=== PATIENT | female | born 1945 | race Caucasian/White ===

== ENCOUNTER 2016-06-01 16:28 | Inpatient (IN) ==
[2016-06-01] MEDS ORDERED: ASPIRIN PO ONE (17:20)
[2016-06-01 17:23] LABS: MANUAL DIFF NEEDED? NO
--- NOTE | 2016-06-01 17:26 | Diag Imaging Result Document ---
PROCEDURE NAME: CHEST-2 VIEWS - 06/01/2016 FRONTAL AND LATERAL CHEST, TWO VIEWS: FINDINGS: The lungs are well expanded. The heart is borderline mildly prominent. The vessels are not distended. No pneumonia. No free air beneath the diaphragm. IMPRESSION: Borderline mildly prominent heart, otherwise negative exam.
[2016-06-01 17:37] LABS: BASO% 0.2 % (0.0-0.8); EOS# 0.33 X1000 (0.0-0.7); EOS% 3.6 % (0.0-10.0); HEMATOCRIT 37.1 % (37.0-47.0); HEMOGLOBIN 12.8 g/dL (12.0-16.0); IMM GRAN# 0.02 X1000 (0.0-0.04); IMM GRAN% 0.2 % (0.0-0.5); LYMPH# 2.42 X1000 (1.2-3.4); LYMPH% 26.3 % (20.5-51.1); MCHC 34.5 g/dL (33-37); MCV 86.9 FL (81-99); MONO% 9.8 % (1.7-9.3); MPV 10.7 FL (7.4-10.4); NEUT% 59.9 % (42.2-75.2); PLT 198 X1000 (130-400); RBC 4.27 XMIL (4.2-5.4)
[2016-06-01 17:42] LABS: INR 1.06; PROTIME 11.2 Seconds (9.2-11.7); PTT 25.3 Seconds (22.0-36.0)
[2016-06-01 17:48] LABS: ALBUMIN 3.8 g/dL (3.5-5.0); CALCIUM 9.1 mg/dL (8.8-10.2); MAGNESIUM 1.9 mg/dL (1.5-2.7); POTASSIUM 3.5 mmol/L (3.5-5.1); TOTAL BILIRUBIN 0.34 mg/dL (0.20-1.00); TOTAL PROTEIN 6.8 g/dL (6.3-8.3)
--- NOTE | 2016-06-01 18:10 | PROVIDER DOCUMENTATION ---
HPI-Chest Pain - General Chief Complaint: Chest Pain Stated Complaint: CP Time Seen by Provider: 06/01/16 18:06 Source: patient Allergies/Adverse Reactions: Patient Allergies Allergy/AdvReac Type Severity Reaction Status Date / Time No Known Allergies Allergy Verified 06/01/16 17:08 Home Medications: Home Medication List Medication Instructions Recorded Confirmed Last Taken Type Alprazolam 1 mg PO DAILY 06/01/16 06/01/16 06/01/16 History Desvenlafaxine Succinate [Pristiq 100 mg PO DAILY 06/01/16 06/01/16 06/01/16 History ER] LISINOpril [Prinivil] 10 mg PO DAILY 06/01/16 06/01/16 06/01/16 History Pantoprazole Sodium 40 mg PO DAILY 06/01/16 06/01/16 06/01/16 History Trazodone [Desyrel] 100 mg PO QHS 06/01/16 06/01/16 05/31/16 History Ziprasidone HCl 80 mg PO DAILY 06/01/16 06/01/16 06/01/16 History - History of Present Illness-CP Nature of Presenting Problem: 70 yof with chest pain since this morning about 8am. Pain comes and goes. Pt describes pain a a sharp pain in left side of chest. Pt has some nausea with the pain and SOB. No other symptoms. Pt had a stress test on Friday and is supposed to follow up with circuit judge on Friday due to some blockage that was found. Location: reports: substernal Chest Pain Radiation: reports: arms Quality of Pain: reports: sharp Severity in ED: mild Onset/Duration: 4-6 hours ago Timing: still present, intermittent Context/Activities at Onset: reports: light activity Modifying Factors: improves with: rest Associated Symptoms: reports: nausea, shortness of breath Nitro Today/Relief: no nitro taken today Prior Chest Pain/Cardiac Workup: reports: stress test Similar Symptoms Previously?: Yes Recently Seen Here or By Another Healthcare Provider: Yes (Had stress test on Friday.) Review of Systems - Adult - REVIEW OF SYSTEMS - ADULT Constitutional: reports: see HPI Eyes: reports: no symptoms reported Ears, Nose, Mouth & Throat: reports: no symptoms reported Cardiovascular: reports: see HPI, chest pain Respiratory: reports: see HPI, shortness of breath Gastrointestinal: reports: see HPI, nausea Genitourinary: reports: no symptoms reported Musculoskeletal: reports: no symptoms reported Integumentary: reports: no symptoms reported Neurological: reports: no symptoms reported All Other Systems: Reviewed and Negative Past History - Adult - PAST MEDICAL HISTORY-ADULT Review of Records: reports: Old Records Reviewed, Nursing Assessment Review, Medications Reviewed, Social history reviewed & non-contributory. Physical Exam-General - PHYSICAL EXAM-ADULT Initial Vital Signs Reviewed: Yes - CONSTITUTIONAL General Appearance: appears well, alert, no apparent distress - EYES Eyes: PERRL/EOMI, pink conjunctivae - HEAD, EARS, NOSE, MOUTH & THROAT HENMT: normocephalic/atraumatic, moist mucous membranes, normal ENT inspection, TMs normal, pharynx normal - NECK Neck: non-tender, full range of motion, supple, normal inspection - RESPIRATORY Respiratory: lungs clear, normal breath sounds, no pleuratic chest pain, no respiratory distress, no accessory muscle use - CARDIOVASCULAR Cardiovascular: normal peripheral pulses, no edema, no gallop, no JVD, no murmur , irregularly irregular - GASTROINTESTINAL (ABDOMEN) Abdominal Exam: normal bowel sounds, non tender, soft, no organomegaly, no pulsatile mass - LYMPHATIC Lymphatic: no adenopathy - MUSCULOSKELETAL Back Exam: normal inspection, no CVA tenderness, no vertebral tenderness Extremity: normal range of motion, non-tender, normal gait, normal inspection, no pedal edema, no calf tenderness, normal capillary refill, pelvis stable - SKIN Integumentary: normal color, normal turgor, warm/dry - NEUROLOGIC Neurologic: grossly normal - PSYCHIATRIC Psych/Mental Status: oriented x 3 Progress - PLAN OF CARE/RESULTS Progress/Plan/Lab Results: Vital Signs - 8 hr 06/01/16 16:40 06/01/16 17:25 06/01/16 19:24 Temperature 98.1 F Pulse Rate 72 69 67 Respiratory Rate 20 15 18 Blood Pressure 152/90 186/84 167/98 O2 Sat by Pulse Oximetry 96 95 96 Laboratory Results - last 24 hr 06/01/16 06/01/16 06/01/16 17:18 17:18 17:18 WBC 9.21 RBC 4.27 Hgb 12.8 Hct 37.1 MCV 86.9 MCH 30.0 MCHC 34.5 RDW Std Deviation 13.8 Plt Count 198 MPV 10.7 H Immature Gran % (Auto) 0.2 Neut % (Auto) 59.9 Lymph % (Auto) 26.3 [place] % (Auto) 9.8 H Eos % (Auto) 3.6 Baso % (Auto) 0.2 Immature Gran # (Auto) 0.02 Neut # (Auto) 5.52 Lymph # (Auto) 2.42 [place] # (Auto) 0.90 H Eos # (Auto) 0.33 Baso # (Auto) 0.02 PT INR PTT (Actin FS) D-Dimer 0.40 Sodium 138 Potassium 3.5 Chloride 97 L Carbon Dioxide 27 Anion Gap 14 BUN 10 Creatinine 1.0 H Estimated GFR/1.73 m2 55 BUN/Creatinine Ratio 10 Glucose 117 H Calculated Osmolality 276 Calcium 9.1 Magnesium 1.9 Total Bilirubin 0.34 AST 21 ALT 15 Alkaline Phosphatase 76 Creatine Kinase 128 Troponin T Fbi-X-Daxzotzadjy Pept Total Protein 6.8 Albumin 3.8 Globulin 3.0 Albumin/Globulin Ratio 1.3 06/01/16 06/01/16 06/01/16 17:18 17:18 17:18 WBC RBC Hgb Hct MCV MCH MCHC RDW Std Deviation Plt Count MPV Immature Gran % (Auto) Neut % (Auto) Lymph % (Auto) [place] % (Auto) Eos % (Auto) Baso % (Auto) Immature Gran # (Auto) Neut # (Auto) Lymph # (Auto) [place] # (Auto) Eos # (Auto) Baso # (Auto) PT 11.2 INR 1.06 PTT (Actin FS) 25.3 D-Dimer Sodium Potassium Chloride Carbon Dioxide Anion Gap BUN Creatinine Estimated GFR/1.73 m2 BUN/Creatinine Ratio Glucose Calculated Osmolality Calcium Magnesium Total Bilirubin AST ALT Alkaline Phosphatase Creatine Kinase Troponin T < 0.010 Fps-K-Tomxggzmorc Pept 316 Total Protein Albumin Globulin Albumin/Globulin Ratio Orders Category Date Time Status Saline Loc NOW Care 06/01/16 16:32 Active CHEST-2 VIEWS [RAD] Stat Exams 06/01/16 16:32 Draft CBC WITH ELECTRONIC DIFF [HEME] Stat Lab 06/01/16 17:18 Completed CK PROFILE [SP CHEM] Stat Lab 06/01/16 17:18 Completed COMPREHENSIVE METABOLIC PANEL [CHEM] Stat Lab 06/01/16 17:18 Completed D-DIMER [CHEM] Stat Lab 06/01/16 17:18 Completed MAGNESIUM [CHEM] Stat Lab 06/01/16 17:18 Completed PRO B-NATRIURETIC PEPTIDE Stat Lab 06/01/16 17:18 Completed PROTIME WITH INR [COAG] Stat Lab 06/01/16 17:18 Completed PTT [COAG] Stat Lab 06/01/16 17:18 Completed TROPONIN T Stat Lab 06/01/16 17:18 Completed Aspirin Med 06/01/16 17:20 Discontinued 325 mg PO NOW ONE EKG [EKG] Stat Ther 06/01/16 16:32 Ordered Result Diagrams: 06/01/16 17:18 06/01/16 17:18 - XRAY 1 XRAY Study: Chest Impression: Normal (Borderline cardiomegaly. Otherwise normal per radiologists.) - CONSULTS/PCP/HOSPITALIST Notification #1 *Consult/PCP/Hospitalist*: Fito Time Discussed: 18:41 Consult Disposition: Will see in ED, Admit #2 Consult: Marco Time Discussed: 19:44 (will be happy to be consulted on patient and give recommendations once he sees her in hospital.) Consult Disposition: other Departure - Departure Time of Disposition Decision: 18:41 DIAGNOSIS: Chest pain Qualifiers: Chest pain type: unspecified Qualified Code(s): R07.9 - Chest pain, unspecified Disposition: ADMITTED INPATIENT 09 Certified Medical Emergency: Emergent Condition: Stable Referrals and Follow-Ups: Jerome Daily MD [Primary Care Provider] - Attestation - Physician/ VENKATESH Attestation Patient care was provided by Advanced Practice Provider:: Yes Advanced Practice Provider:: Toño Reyna Advanced Practice Provider documentation review:: The Mid-level provider documentation, treatment plan and medical decision making was reviewed by the physician who agrees with all treatment and medical decision making by the MLP.
--- NOTE | 2016-06-01 21:06 | HISTORY AND PHYSICAL ---
REASON FOR ADMISSION: Chest pain today. PRIMARY CARE PHYSICIAN: Dr. Jerome Daily. Ms. Stone is a 70-year-old lady with past medical history of seasonal allergic rhinitis, reflux disease, hypertension, anxiety and depression who underwent a Lexiscan stress test 4 days ago and her test was found to be negative. This test was read by Dr. Morales but he did however recommend a CT scan of the chest for coronary calcium scoring. The patient reports that she while at rest today 8 hours ago she felt some sharp pressure-like chest pain in the precordial area which was nonradiating. The pain was intermittent and has lasted 5 hours but spontaneously resolved without any recurrence. During this spell she denied any dizziness, palpitations or shortness of breath with it. She did complain of nausea but at the same time she developed some nonbloody diarrhea about that time. No vomiting. Her diarrhea is non-mucoid and she has had 3 episodes altogether. She initially had some vague diffuse abdominal pain but this has since resolved. Her chest pain has no specific aggravating or relieving factors. She denies any new onset leg swelling but she also denies any PND, orthopnea with this. No extremity redness or pain. REVIEW OF SYSTEMS: Patient says he has had a chronic cough for several months nonproductive without any fever or chills. She has a history of ocular nasal pruritus which gets worse during the spring season when there is lot of pollen. Heartburn has not worsened however. Twelve system review is negative. Additional review of systems 12 systems reviewed. Positive findings noted in HPI and as per above. Patient says for the last 6 months she has been having increasing dyspnea on exertion. ALLERGIES: No known allergies. MEDICATIONS: Xanax 1 mg daily, Pristiq 100 mg daily, lisinopril 10 mg daily, Protonix 40 mg daily, trazodone 100 mg at bedtime, Geodon 80 mg daily. SURGICAL HISTORY: Had shoulder and back surgery. FAMILY HISTORY: Notable for asthma, heart disease and type 2 diabetes in first-degree relatives. SOCIAL HISTORY: Does not smoke, drink, or use illicit drugs, lives alone. LAB WORK: Is notable for the following findings. White count 9000, hemoglobin and hematocrit 12 and 37, platelets 198,000. Potassium 3.5, glucose 117, troponin is negative. CK 128, D-dimer negative, PT, PTT normal. Chest x-ray shows borderline cardiomegaly with no other acute findings. EKG not available for review and nurse is still working for the EKG at this time and not been able to find it so will probably need to repeat another 1. EXAMINATION: Vital Signs: Blood pressure 167/90, heart rate 67, respirations 18, temperature 98.1, 96 on room air. General: Pleasant elderly woman who is not in acute distress, she is A, O x3, normal mood and affect. HEENT: Head is normocephalic, atraumatic. RODRIGUE, EOMI. Sclerae anicteric and not pale. ENT and oropharynx exam is grossly normal. No cyanosis noted. Neck: Short and thick. No JVD or carotid bruit. No thyromegaly. Chest: Decreased entry in the bases. Expiratory wheezes in the bases more on the right compared to left. No crepitations. Cardiac System: First, second heart sounds heard. No gallops, murmurs, rubs. Rhythm is regular. Abdomen: Protuberant, soft, no focal areas of tenderness, slightly hyperactive bowels noted. Rectal: Deferred. Extremities: Trace to 1+ pitting edema both lower extremities. Pulses distally intact in all extremities with good volume and all symmetrical. The patient has hyperpigmented changes on both shins suggestive of chronic venous insufficiency. No clubbing, cyanosis noted. Neuro: No focal deficits. Skin: Grossly normal other than noted above. Muscular exam: Grossly normal. ASSESSMENT: 1. Chest pain syndrome probable somewhat atypical for ischemia. 2. Acute diarrhea probably viral illness. 3. Hypertension. 4. Hypokalemia. 5. Reflux disease. 6. Very probable asthma. 7. Allergic rhinitis. 8. Anxiety and depression. PLAN: 1. At this time will cautiously hydrate patient to make up for her fluid losses per rectum. Start patient on breathing treatments see how she does. If she improves I may suggest a short course of prednisone. Start on Flonase and Zyrtec for allergic rhinitis. 2. Serial cardiac enzymes will be done. Dr. Sanchez the utilization review coordinator was consulted and he said he would need to see the patient before he can make a firm decision how to proceed. Lipid panel has been ordered, aspirin will be continued, p.r.n. sublingual nitroglycerin if needed. 3. Regarding her diarrhea stool cultures C. difficile has been sent off. The patient denies any recent use of antibiotics. If patient has a fever or abdominal pain recurs I recommended CT scan in light of the fact the patient has a history of diverticulosis. cc: Eladio Harmon MD
[2016-06-01] MEDS: DUONEB (A & A) INH SCH (21:13)
[2016-06-01] MEDS ORDERED: NITROGLYCERIN SL PRN (21:29)
[2016-06-01] MEDS ORDERED: ZOFRAN IV PRN (21:29)
[2016-06-01] MEDS ORDERED: POTASSIUM CHLORIDE 10 MEQ in NS 1,000 ML IV ONE (21:29)
[2016-06-01] MEDS ORDERED: TYLENOL PO PRN (21:29)
[2016-06-01] MEDS: FLONASE NAS SCH (22:09)
[2016-06-01] MEDS: ZYRTEC PO SCH (22:09)
[2016-06-01] MEDS: DESYREL PO SCH (22:09)
[2016-06-01] MEDS: LOVENOX SUBQ SCH (22:09)
[2016-06-01] MEDS: GEODON PO SCH (23:02)
[2016-06-02] MEDS: DUONEB (A & A) INH SCH ×3 (02:55→18:29)
[2016-06-02] MEDS: PRILOSEC PO SCH ×2 (05:56→06:19)
[2016-06-02] MEDS: PRINIVIL PO SCH (08:30)
[2016-06-02] MEDS: ZYRTEC PO SCH (08:31)
[2016-06-02] MEDS: PRISTIQ ER PO SCH (08:31)
[2016-06-02] MEDS: XANAX PO SCH (08:31)
[2016-06-02] MEDS: ASPIRIN PO SCH (08:31)
[2016-06-02] MEDS ORDERED: PROTONIX PO SCH (09:00)
[2016-06-02] MEDS ORDERED: GEODON PO SCH (09:00)
[2016-06-02] MEDS ORDERED: DUONEB (A & A) INH PRN (13:36)
[2016-06-02] MEDS ORDERED: SOLU-MEDROL IV SCH (14:00)
--- NOTE | 2016-06-02 15:02 | PROGRESS NOTE ---
DATE: 06/02/2016 SUBJECTIVE: The patient is feeling well. Still has intermittent chest pain which she has had for the past month. It is worse with breathing. OBJECTIVE: Vital signs: Blood pressure 165/66, pulse of 84, respirations 20, temperature 98.2 degrees, saturation of 97% on room air. General appearance: Well-developed, well-nourished white female in no acute distress. HEENT: Anicteric. Clear conjunctivae. Neck: Supple. No JVD. No bruits. Cardiovascular: S1, S2. Normal rate and rhythm. No murmurs, rubs, or gallops. Pulmonary: Clear to auscultation bilaterally. GI: Soft, nontender, nondistended. Normoactive bowel sounds. Musculoskeletal: No clubbing, cyanosis, or edema. LABORATORY: Troponin 3 sets were negative. Total cholesterol is 158, LDL 100, and HDL 42. Her chest x-ray just borderline mildly prominent heart. ASSESSMENT AND PLAN: 1. This is a 70-year-old white female admitted to the hospital for intermittent chest pain with negative troponins but she continued to have pain. Cardiology is seeing her. Discussed with Dr. Lara this morning. Because of the fact that she is female, obese, and has chest pain, it is warranted for us to do further workup. Will send the patient for a nuclear medicine stress test tomorrow. 2. Hypertension. We will resume her lisinopril. 3. Anxiety disorder. Continue Xanax. 4. Depression. Continue Pristiq. 5. Insomnia. Continue Desyrel and Zyprexa.
--- NOTE | 2016-06-02 21:48 | CONSULTATION ---
DATE OF CONSULTATION: 06/02/2016 IMPRESSION: 1. Atypical chest pain. 2. Recent exercise treadmill study reported to be nonischemic. Transient paroxysmal atrial fibrillation reported in recovery. 3. Hypertension. 4. Peptic ulcer disease. RECOMMENDATIONS: 1. Stress myocardial imaging. 2. Echocardiography. HISTORY: This 70-year-old white female with past history of hypertension and obesity was admitted for further evaluate of chest pain. She describes episodic discomfort in the anterior and left precordium which is characterized as a sharp piercing discomfort which is fleeting but recurs frequently over 15 minutes or so at a time. She has been having such discomfort off and on for about 6 months. Discomfort is not pleuritic although she does state the discomfort seems to be aggravated by movement of the torso. She underwent exercise treadmill study earlier in the week which was felt to be nonischemic with respect to ST-segment changes. However patient reportedly developed a paroxysm of atrial fibrillation during recovery which resolved. The patient had further chest discomfort prompting her to come into the emergency room for evaluation after which she was admitted. PAST MEDICAL HISTORY: 1. Hypertension. 2. Obesity. 3. Peptic ulcer disease. PAST SURGICAL HISTORY: Includes unspecified back surgery and removal of spur from right shoulder. ALLERGIES: She has no known drug allergies. MEDICATIONS: Prior to admission as listed. SOCIAL HISTORY: She does not smoke or use alcohol. FAMILY HISTORY: Negative for premature coronary disease. She does have a family history of coronary disease in the 7th decade and beyond. REVIEW OF SYSTEMS: Pulmonary: Negative. Gastrointestinal: Negative. Constitutional: Negative. Remainder of review of systems negative with 14 total systems reviewed. PHYSICAL EXAMINATION: General: This is a obese older white female, in no distress. Vital Signs: As recorded are stable. HEENT: Extraocular movements intact. Mucous membranes are moist. Neck: Supple without JV distention. There are no carotid bruits. Chest: Clear to auscultation. Cardiac Exam: A regular rate and rhythm without appreciable murmur or gallop. Abdomen: Soft, nontender. Bowel sounds are normal. Extremities: Without edema. Neurologic Exam: Reveals her to be alert, fully oriented. Speech is fluent. She moves all 4 extremities equally well. Skin: Warm and dry. Psychiatric: Reveals mood to be appropriate. DIAGNOSTIC DATA: ECG demonstrates sinus rhythm with occasional premature atrial complex and left ventricular hypertrophy with repolarization abnormality. cc: Hugo Lara MD
[2016-06-03] MEDS: DESYREL PO SCH ×2 (00:53→20:43)
[2016-06-03] MEDS: GEODON PO SCH ×2 (00:54→20:43)
[2016-06-03] MEDS: FLONASE NAS SCH ×2 (00:54→20:44)
--- NOTE | 2016-06-03 05:25 | EKG Report ---
Test Performed on : 06/03/2016 03:23:30 AM Test Reason : chest pain Blood Pressure : / mmHG Vent. Rate : 078 BPM Atrial Rate : 078 BPM P-R Int : 176 ms QRS Dur : 084 ms QT Int : 418 ms P-R-T Axes : 086 -20 092 degrees QTc Int : 476 ms Normal sinus rhythm. Left ventricular hypertrophy with repolarization abnormality Abnormal ECG When compared with ECG of 01-JUN-2016 20:25, (Unconfirmed) premature atrial complexes. are no longer present Confirmed by Darin OROZCO, Raymond Carpenter ([id number]) on 06/03/2016 6:49:39 PM
--- NOTE | 2016-06-03 05:59 | EKG Report ---
Test Performed on : 06/01/2016 8:25:25 PM Test Reason : CP Blood Pressure : / mmHG Vent. Rate : 066 BPM Atrial Rate : 066 BPM P-R Int : 192 ms QRS Dur : 088 ms QT Int : 466 ms P-R-T Axes : 065 -11 118 degrees QTc Int : 488 ms Sinus rhythm. with premature atrial complexes. Left ventricular hypertrophy with repolarization abnormality Abnormal ECG When compared with ECG of 01-JUN-2016 16:32, (Unconfirmed) No significant change was found Confirmed by Darin OROZCO, Raymond Carpenter ([id number]) on 06/03/2016 6:39:51 PM
--- NOTE | 2016-06-03 06:23 | EKG Report ---
Test Performed on : 06/01/2016 4:32:29 PM Test Reason : Chest Pain Blood Pressure : / mmHG Vent. Rate : 076 BPM Atrial Rate : 076 BPM P-R Int : 176 ms QRS Dur : 086 ms QT Int : 418 ms P-R-T Axes : 080 -10 110 degrees QTc Int : 470 ms Sinus rhythm. with premature atrial complexes. Left ventricular hypertrophy with repolarization abnormality Abnormal ECG No previous ECGs available Unconfirmed Result
[2016-06-03 08:29] LABS: CALCIUM 8.8 mg/dL (8.8-10.2); POTASSIUM 4.1 mmol/L (3.5-5.1)
[2016-06-03] MEDS ORDERED: LEXISCAN ONE (09:00)
[2016-06-03] MEDS: PRILOSEC PO SCH (09:04)
[2016-06-03] MEDS: XANAX PO SCH (11:01)
[2016-06-03] MEDS: ASPIRIN PO SCH (11:01)
[2016-06-03] MEDS: PRINIVIL PO SCH (11:02)
[2016-06-03] MEDS: PRISTIQ ER PO SCH (11:02)
[2016-06-03] MEDS: ZYRTEC PO SCH (11:02)
[2016-06-03] MEDS: APRESOLINE PO SCH ×4 (11:37→20:43)
[2016-06-03] MEDS: LOVENOX SUBQ SCH (11:37)
--- NOTE | 2016-06-03 13:17 | PROGRESS NOTE ---
DATE: 06/03/2016 SUBJECTIVE: This patient states that she is feeling better, her blood pressure has been high, around 200. She is just on lisinopril. I will add hydralazine 10 IV q.4 hours p.r.n. and also I will add hydralazine 25 mg p.o. t.i.d. We will continue to monitor. Cardiology department is on board. She just came back from a stress test. OBJECTIVE: Vital Signs: Temperature 99.2, pulse 99, respiratory rate 20, blood pressure 219/77, oxygen saturation 100% on room air. HEENT: Head normocephalic. No trauma. PERRLA. Neck: Supple. No JVD. No masses. Central trachea. Cardiovascular: RRR. No murmurs. Abdomen: Soft, nontender, nondistended. No hepatosplenomegaly. Extremities: No edema. No clubbing. No cyanosis. Neurological: The patient is alert and oriented x3. No focal deficits. LABORATORY: Sodium 141, potassium 4.1, chloride 101, bicarbonate 27, BUN 10, creatinine 1, glucose 128, calcium 8.8. ASSESSMENT AND PLAN: 1. Chest pain. Cardiology department has evaluated this patient. This patient just came back from a stress test and probably echocardiogram as well. We will continue monitoring this patient on the medical floor, we will wait for the stress test results. 2. Hypertension. This patient is on lisinopril, but I will add hydralazine IV q.4 hours p.r.n. and hydralazine 25 mg p.o. t.i.d. scheduled. I will monitor the blood pressure. 3. Anxiety disorder. Continue with Xanax. 4. Depression. Continue with Pristiq. 5. Insomnia. Continue with Desyrel and Zyprexa. cc: Antony Sauceda MD
--- NOTE | 2016-06-03 16:33 | ECHO REPORT ---
ORDER DATE: 06/03/2016 ECHOCARDIOGRAPHIC MEASUREMENTS: 1. Interventricular septum 1.2, left ventricular posterior wall 1.2, diastolic diameter 4.4, left atrium 3.6, aorta 2.8. Normal left ventricular cavity size. Borderline left ventricular hypertrophy. Estimated ejection fraction of 60-65%. 2. Aortic valve leaflets are trileaflet, mildly sclerosed, opening normally. Pulmonic valve was normal. Tricuspid valve was normal. Mitral valve was brit. 3. There is mild to moderate mitral regurgitation, mild tricuspid regurgitation. Peak velocity across the tricuspid valve was 3 m/sec. Pulmonary artery systolic pressure 46 mmHg. 4. There is trace pulmonary regurgitation. 5. There is no pericardial effusion or obvious intracardiac mass or thrombus. cc: MD Hugo Kwong MD
[2016-06-04 06:36] LABS: MANUAL DIFF NEEDED? NO
[2016-06-04 06:45] LABS: BASO% 0.4 % (0.0-0.8); EOS# 0.27 X1000 (0.0-0.7); EOS% 5.3 % (0.0-10.0); HEMATOCRIT 38.4 % (37.0-47.0); HEMOGLOBIN 13.1 g/dL (12.0-16.0); IMM GRAN# 0.02 X1000 (0.0-0.04); IMM GRAN% 0.4 % (0.0-0.5); LYMPH# 1.68 X1000 (1.2-3.4); MCHC 34.1 g/dL (33-37); MCV 87.9 FL (81-99); MONO% 7.9 % (1.7-9.3); MPV 10.6 FL (7.4-10.4); PLT 193 X1000 (130-400); RBC 4.37 XMIL (4.2-5.4)
[2016-06-04 06:59] LABS: CALCIUM 8.9 mg/dL (8.8-10.2); POTASSIUM 3.6 mmol/L (3.5-5.1)
[2016-06-04] MEDS: PRILOSEC PO SCH (06:59)
[2016-06-04 07:37] VITALS: BP 147/66
[2016-06-04] MEDS: PRINIVIL PO SCH (09:13)
[2016-06-04] MEDS: ZYRTEC PO SCH (09:13)
[2016-06-04] MEDS: XANAX PO SCH (09:13)
[2016-06-04] MEDS: PRISTIQ ER PO SCH (09:13)
[2016-06-04] MEDS: ASPIRIN PO SCH (09:13)
[2016-06-04] MEDS: APRESOLINE PO SCH (09:13)
[2016-06-04] MEDS ORDERED: LOVENOX SUBQ SCH (11:40)
--- NOTE | 2016-06-05 05:33 | DISCHARGE SUMMARY ---
ADMISSION DATE: 06/01/2016 DISCHARGE DATE: 06/04/2016 CONSULTATIONS: Dr. Hugo Lara with cardiology. PERTINENT PROCEDURES: 1. Echocardiogram. Echocardiogram showed an EF of 60% to 65%. 2. A Lexiscan that was negative. DISCHARGE DIAGNOSES: 1. Chest pain. Patient was ruled out with serial cardiac enzymes, negative Lexiscan stress test. Followed by cardiology. 2. Hypertension. Continue on home medications. 3. Anxiety disorder. Continue Xanax. 4. Depression. Continue with Pristiq. 5. Insomnia. Continue with Zestril and Zyprexa. HOSPITAL COURSE: Ms. Stone is a 70-year-old female. Has a past medical history of seasonal allergic rhinitis, reflux disease, hypertension, anxiety, depression. Underwent a Lexiscan stress test 4 days ago. Was found to be negative. The test was read by Dr. Morales, but he did however recommend a CT scan of the chest for coronary calcium scoring. The patient reports that while at rest, 8 hours prior to admission, she felt a sharp pressure-like chest pain in the precordial area that was nonradiating. The pain was intermittent and lasted about 5 hours, but spontaneously resolved without reoccurrence. She denied any dizziness, palpitations, shortness of breath, but did complain of nausea. But at the same time, she developed some nonbloody diarrhea. No vomiting. Her diarrhea was non-mucoid, and she has had 3 episodes altogether. Some vague diffuse abdominal pain, that has since resolved. The patient was admitted with a cardiology consult. She was ruled out with cardiac enzymes, unremarkable echocardiogram, as well as a negative stress test. She is being discharged back home today. DISCHARGE DIET: Healthy heart. DISCHARGE MEDICATIONS: 1. Xanax 1 mg p.o. daily. 2. Aspirin 325 mg p.o. daily. 3. Pristiq 100 mg p.o. daily. 4. Flonase 2 sprays nasally at bedtime. 5. Apresoline 25 mg p.o. t.i.d. 6. Prinivil 10 mg p.o. daily. 7. Protonix 40 mg p.o. daily. 8. Zestril 100 mg p.o. at bedtime. 9. Ziprasidone 80 mg p.o. at bedtime. FOLLOWUP: Patient is being discharged home. She will follow up with her primary care physician, Dr. Jerome Daily, as well as her primary valve mechanic. The patient can return to the ED for any worsening of symptoms. The patient adamantly refused home health and physical therapy. DISCHARGE TIME: 30 minutes. Dictated by SUKHI Mesa for Antony Sauceda MD cc: Antony Sauceda MD
--- NOTE | 2016-06-27 14:16 | Diag Imaging Result Document ---
PROCEDURE NAME: MYOCARDIAL PERF SCAN, STR/REST - 06/03/2016 LEXISCAN CARDIOLITE STRESS TEST: Lexiscan was infused per standard protocol. There was no chest pain. Stress electrocardiogram was negative for ischemia. 12.7 mCi of Cardiolite was injected for the rest phase. 35.3 mCi of Cardiolite was injected for the stress phase. Gated SPECT images were obtained in standard views. Images revealed chest wall attenuation. There is normal myocardial perfusion. Left ventricular ejection fraction 67%. Wall motion was normal. Left ventricular volume was normal. CONCLUSIONS: 1. No chest pain. 2. Negative Lexiscan stress electrocardiogram. 3. Normal myocardial perfusion. 4. Left ventricular ejection fraction 67%. cc: MD Hugo Kwong MD
== END 2016-06-04 12:26 | disposition home or self-care (01) ==
LOC: ED 16:28 → SUATTDRO 20:28 → 3S 20:28 → 4N 06-02 18:36
PROVIDERS: ATTEND Internal Medicine

== ENCOUNTER 2018-04-01 18:26 | Observation (INO) ==
[2018-04-01 18:50] LABS: BE 4.8 mmoll (-3.0-3.0); BLOOD TYPE ARTERIAL; HCO3-(ACT) 28.6 mmoll (20.0-26.0); METHB 1.3 % (0.0-1.5); O2(CT) 18.2 mL/dL (15.0-23.0); O2HB 94.1 % (95.0-99.0); PCO2(98.6) 45 mmHg (35-45); PO2(98.6) 78 mmHg (60-100); SAMPLE BLOOD; SAO2 97.6 % (95.0-100.0); THB 13.7 g/dL (11.5-17.4); pH(98.6) 7.43 (7.35-7.45)
[2018-04-01 18:52] LABS: ALLEN TEST YES; MODALITY ROOM AIR
[2018-04-01 19:29] LABS: BILIRUBIN URINE NEGATIVE (NEGATIVE); BLOOD URINE 1+ (NEGATIVE); CLARITY CLEAR (CLEAR); COLOR YELLOW; GLUCOSE URINE NEGATIVE (NEGATIVE); KETONE URINE NEGATIVE (NEGATIVE); LEUKOCYTES URINE 1+ (NEGATIVE); NITRITE URINE NEGATIVE (NEGATIVE); PROTEIN URINE NEGATIVE (NEGATIVE); UROBILINOGEN URINE NORMAL
[2018-04-01 19:43] LABS: URINE SOURCE CATH
[2018-04-01 19:45] LABS: URINE BACTERIA 2+ /HFP; URINE CAST NONE SEEN /LPF; URINE CRYSTAL NONE SEEN /HPF; URINE EPITHELIAL CELLS <10 /HPF (<10); URINE RBC <10 /HPF (<10); URINE SMALL ROUND CELLS RENAL PRESENT; URINE WBC <10 /HPF (<10); URINE YEAST NONE SEEN /HPF
[2018-04-01 19:58] LABS: BASO# 0.02 X1000 (0.0-0.2); BASO% 0.2 % (0.0-0.8); EOS# 0.18 X1000 (0.0-0.7); EOS% 2.2 % (0.0-10.0); HEMATOCRIT 37.2 % (37.0-47.0); HEMOGLOBIN 12.9 g/dL (12.0-16.0); IMM GRAN# 0.02 X1000 (0.0-0.04); IMM GRAN% 0.2 % (0.0-0.5); LYMPH# 2.42 X1000 (1.2-3.4); LYMPH% 29.8 % (20.5-51.1); MCH 28.9 PG (27-31); MCHC 34.7 g/dL (33-37); MCV 83.4 FL (81-99); MONO# 0.56 X1000 (0.11-0.59); MONO% 6.9 % (1.7-9.3); MPV 10.9 FL (7.4-10.4); NEUT# 4.91 X1000 (1.4-6.5); NEUT% 60.7 % (42.2-75.2); PLT 153 X1000 (130-400); RBC 4.46 XMIL (4.2-5.4); RDW 13.4 % (11.5-14.5); WBC 8.11 X1000 (4.8-10.8)
[2018-04-01 20:03] LABS: INR 1.03; PTT 30.6 Seconds (22.3-41.8)
--- NOTE | 2018-04-01 20:03 | Diag Imaging Result Doc PS360 ---
EXAM: CT HEAD W/O CONTRAST - 04/01/2018 HISTORY: AMS TECHNIQUE: CT head without contrast COMPARISON: None. FINDINGS: There are mild atrophic changes. There are mild chronic appearing microvascular ischemic changes. There is no indication of recent infarct, although acute infarcts may not be immediately visible. There is no evidence of intracranial hemorrhage, mass effect, or midline shift. There is no evidence of skull fracture. There are possible small bilateral mastoid effusions noted. IMPRESSION: No visible acute intracranial abnormality. No hemorrhage or mass effect. There are possible small mastoid effusions noted. This exam was performed using automated exposure control, adjustment of mA or kV according to patient size, and/or use of iterative reconstruction technique. Electronically signed by Emmett Guajardo 04/01/2018 8:00 PM
[2018-04-01 20:10] LABS: ALBUMIN 4.2 g/dL (3.5-5.0); CALCIUM 9.1 mg/dL (8.8-10.2); POTASSIUM 2.8 mmol/L (3.5-5.1); TOTAL BILIRUBIN 0.6 mg/dL (0.20-1.00); TOTAL PROTEIN 6.8 g/dL (6.3-8.3)
--- NOTE | 2018-04-01 20:27 | Diag Imaging Result Doc PS360 ---
EXAM: CHEST-1 VIEW - 04/01/2018 HISTORY: AMS TECHNIQUE: One view chest COMPARISON: 04/30/2017 FINDINGS: Heart size appears borderline enlarged. Lungs appear essentially clear. There are possible tiny bilateral pleural effusions. There is no pneumothorax identified. IMPRESSION: Borderline cardiomegaly. Possible tiny bilateral pleural effusions. No other acute changes. Electronically signed by Emmett Guajardo 04/01/2018 8:25 PM
[2018-04-01] MEDS ORDERED: KLOR-CON PO ONE (20:33)
[2018-04-01] MEDS ORDERED: APRESOLINE IV ONE ×2 (20:50→21:40)
[2018-04-01] MEDS ORDERED: LABETALOL IV ONE (22:37)
--- NOTE | 2018-04-01 22:40 | PROVIDER DOCUMENTATION ---
This chart was entered by Ping Joseph Scribe, acting as scribe for James Hinton CRNP. HPI-Neurological Disorder - General Chief Complaint: Altered Mental Status Stated Complaint: AMS Time Seen by Provider: 04/01/18 18:48 Source: patient Allergies/Adverse Reactions: Patient Allergies Allergy/AdvReac Type Severity Reaction Status Date / Time No Known Allergies Allergy Verified 04/01/18 18:40 Home Medications: Home Medication List Medication Instructions Recorded Confirmed Last Taken Type LISINOpril [Prinivil] 10 mg PO DAILY 06/01/16 04/01/18 04/01/18 History Trazodone [Desyrel] 100 mg PO QHS #30 tablet 06/04/16 04/01/18 03/31/18 Rx Alprazolam 1 mg PO TID 01/16/17 04/01/18 01/21/17 08:00 History Hydralazine [Apresoline] 50 mg PO TID 01/16/17 04/01/18 04/01/18 History Ziprasidone [Geodon] 40 mg PO QHS 01/16/17 04/01/18 01/21/17 08:00 History Meloxicam 15 mg PO DAILY 04/20/17 04/01/18 04/01/18 History Tolterodine Tartrate [Tolterodine 4 mg PO QHS 04/20/17 04/01/18 03/31/18 History Tartrate ER] Donepezil HCl 5 mg PO HS 04/01/18 04/01/18 03/31/18 History Escitalopram [Lexapro] 5 mg PO DAILY 04/01/18 04/01/18 04/01/18 History Losartan Potassium 25 mg PO DAILY 04/01/18 04/01/18 04/01/18 History Sucralfate 1 gm ORDERED 04/01/18 04/01/18 History - History of Present Illness-Neuro Nature of Presenting Problem: pt is a 72 yr old female presenting with daughter, daughter reports when she arrived at 1615 today mother was confused, could not tell her where she was, did not know her, did not know her own name. last seen at her normal yesterday. pt does admit headache today, unsure when it began, and feeling confused this morning. on exam pt alert to person and place with slow responses. Onset/Duration: reports: unsure Timing: reports: still present Context: reports: impaired speech, facial droop, other (confusion) Character of Altered Mental Status: reports: disoriented Any recent trauma/injury?: reports: none Character of Deficits: reports: impaired speech New weakness or altered sensation location:: reports: right facial Cognitive Baseline: alert but confused Gait Baseline: walks without assistance Associated Symptoms: reports: headache, confusion, slurred speech. denies: vision changes Similar Symptoms Previously?: No Recently seen or treated by another doctor?: No Review of Systems - Adult - REVIEW OF SYSTEMS - ADULT Constitutional: denies: chills, fever Eyes: denies: blurred vision, double vision Ears, Nose, Mouth & Throat: denies: ear pain, sinus problem, throat pain Cardiovascular: reports: other (HTN). denies: chest pain, palpitations, syncope Respiratory: denies: cough, shortness of breath Gastrointestinal: reports: no symptoms reported Genitourinary: reports: no symptoms reported Musculoskeletal: reports: no symptoms reported Integumentary: reports: no symptoms reported Neurological: reports: headache/migraines. denies: numbness, syncope, tremors Psychiatric: reports: no symptoms reported Endocrine: reports: no symptoms reported Hematologic/Lymphatic: reports: no symptoms reported Allergic/Immunologic: reports: no symptoms reported All Other Systems: Reviewed and Negative Past History - Adult - PAST MEDICAL HISTORY-ADULT Review of Records: reports: Old Records Reviewed, Nursing Assessment Review, Medications Reviewed, Social history reviewed & non-contributory. Major Childhood Illnesses: reports: denies history Cardiovascular: reports: A-Fib, HTN Respiratory: reports: denies history Gastrointestinal: reports: denies history Obstetrical/Gynecological: reports: denies history Genitourinary: reports: denies history Musculoskeletal: reports: denies history Neurological: reports: denies history Endocrine/Immune: reports: thyroid disorder Other Conditions: reports: denies history - PRIOR SURGERIES/PROCEDURES Surgical/Procedure History: reports: hysterectomy - IMMUNIZATION STATUS Childhood Immunizations: See Nurse Assessment Flu Vaccine: See Nurse Assessment - FAMILY HISTORY Family History: reviewed, not pertinent - SOCIAL HISTORY Smoking: non-smoker Substance Use: none/never Living Situation: alone Physical Exam- Neurological - Physical Exam-Neuro Initial Vital Signs Reviewed: Yes General Appearance: alert, no apparent distress, slow to respond Eye Exam: bilateral eye: normal inspection, PERRL, EOMI HENMT: normocephalic/atraumatic, moist mucous membranes, normal ENT inspection Head Injury: no evidence of injury Neck: non-tender, full range of motion, supple, normal inspection Respiratory: chest non-tender, lungs clear, normal breath sounds Cardiovascular: normal peripheral pulses, regular rate, rhythm Abdominal Exam: normal bowel sounds, non tender, soft Lymphatic: no adenopathy Extremity: normal range of motion, non-tender, normal inspection paperboard boxes estimator Exam: normal speech, PERRL, facial droop (right facial droop). negative: abnormal eye position, abnormal gag reflex, abnormal pupil position, facial paresthesias, facial weakness Coordination/Gait: normal finger to nose Motor/Sensory: no motor deficit, no sensory deficit, no pronator drift Neurologic: facial droop (right). negative: focal weakness, motor weakness Integumentary: normal color, normal turgor, warm/dry Psych/Mental Status: other (alert to self, place. pt confused to yr and president) - Glascow Coma Scale Best Eye Response: (4) open spontaneously Best Verbal Response: (4) confused conversation Best Motor Response: (6) obeys commands Total Glascow Score: 14 Progress - PLAN OF CARE/RESULTS Progress/Plan/Lab Results: Vital Signs - 8 hr 04/01/18 18:30 04/01/18 22:30 Temperature 99.2 F Pulse Rate 78 88 Respiratory Rate 20 18 Blood Pressure 193/85 O2 Sat by Pulse Oximetry 98 96 Laboratory Results - last 24 hr 04/01/18 04/01/18 04/01/18 18:38 18:40 18:58 WBC RBC Hgb Hct MCV MCH MCHC RDW Std Deviation Plt Count MPV Immature Gran % (Auto) Neut % (Auto) Lymph % (Auto) [place] % (Auto) Eos % (Auto) Baso % (Auto) Immature Gran # (Auto) Neut # (Auto) Lymph # (Auto) [place] # (Auto) Eos # (Auto) Baso # (Auto) PT INR PTT (Actin FS) Specimen Type ARTERIAL Sample Site L RADIAL pH 7.43 pCO2 45 pO2 78 HCO3 28.6 H Base Excess 4.8 H Oxyhemoglobin 94.1 L ABG O2 Sat (Calculated) 18.2 ABG O2 Saturation 97.6 ABG Carboxyhemoglobin 2.20 ABG Methemoglobin 1.3 Dre Test YES A-a O2 Difference 15.0 Total Hemoglobin 13.7 Lactate 1.80 Blood Gas Modality ROOM AIR FiO2 % 21.0 Sodium Potassium Chloride Carbon Dioxide Anion Gap BUN Creatinine Estimated GFR/1.73 m2 BUN/Creatinine Ratio Glucose POC Glucose 157 H Calculated Osmolality Calcium Total Bilirubin AST ALT Alkaline Phosphatase Creatine Kinase Troponin T Total Protein Albumin Globulin Albumin/Globulin Ratio Plasma Lactate Urine Source CATH Urine Color YELLOW Urine Clarity CLEAR Urine pH 7.0 Ur Specific [place] 1.000 Urine Protein NEGATIVE Urine Ketones NEGATIVE Urine Blood 1+ A Urine Nitrite NEGATIVE Urine Bilirubin NEGATIVE Urine Urobilinogen NORMAL Urine Microscopic RBC <10 Urine WBC 1+ A Urine Microscopic WBC <10 Ur Epithelial Cells <10 Urine Crystals NONE SEEN Small Round Cells RENAL PRESENT Urine Bacteria 2+ Urine Casts NONE SEEN Urine Yeast NONE SEEN Urine Glucose NEGATIVE 04/01/18 04/01/18 04/01/18 19:40 19:40 19:40 WBC 8.11 RBC 4.46 Hgb 12.9 Hct 37.2 MCV 83.4 MCH 28.9 MCHC 34.7 RDW Std Deviation 13.4 Plt Count 153 MPV 10.9 H Immature Gran % (Auto) 0.2 Neut % (Auto) 60.7 Lymph % (Auto) 29.8 [place] % (Auto) 6.9 Eos % (Auto) 2.2 Baso % (Auto) 0.2 Immature Gran # (Auto) 0.02 Neut # (Auto) 4.91 Lymph # (Auto) 2.42 [place] # (Auto) 0.56 Eos # (Auto) 0.18 Baso # (Auto) 0.02 PT INR PTT (Actin FS) Specimen Type Sample Site pH pCO2 pO2 HCO3 Base Excess Oxyhemoglobin ABG O2 Sat (Calculated) ABG O2 Saturation ABG Carboxyhemoglobin ABG Methemoglobin Dre Test A-a O2 Difference Total Hemoglobin Lactate Blood Gas Modality FiO2 % Sodium 138 Potassium 2.8 L Chloride 96 L Carbon Dioxide 27 Anion Gap 15 BUN 7 L Creatinine 1.0 H Estimated GFR/1.73 m2 55 BUN/Creatinine Ratio 7 Glucose 166 H POC Glucose Calculated Osmolality 277 Calcium 9.1 Total Bilirubin 0.60 AST 49 H ALT 40 H Alkaline Phosphatase 93 Creatine Kinase 165 Troponin T Total Protein 6.8 Albumin 4.2 Globulin 3.0 Albumin/Globulin Ratio 2.0 Plasma Lactate 1.4 Urine Source Urine Color Urine Clarity Urine pH Ur Specific [place] Urine Protein Urine Ketones Urine Blood Urine Nitrite Urine Bilirubin Urine Urobilinogen Urine Microscopic RBC Urine WBC Urine Microscopic WBC Ur Epithelial Cells Urine Crystals Small Round Cells Urine Bacteria Urine Casts Urine Yeast Urine Glucose 04/01/18 04/01/18 19:40 19:40 WBC RBC Hgb Hct MCV MCH MCHC RDW Std Deviation Plt Count MPV Immature Gran % (Auto) Neut % (Auto) Lymph % (Auto) [place] % (Auto) Eos % (Auto) Baso % (Auto) Immature Gran # (Auto) Neut # (Auto) Lymph # (Auto) [place] # (Auto) Eos # (Auto) Baso # (Auto) PT 14.0 INR 1.03 PTT (Actin FS) 30.6 Specimen Type Sample Site pH pCO2 pO2 HCO3 Base Excess Oxyhemoglobin ABG O2 Sat (Calculated) ABG O2 Saturation ABG Carboxyhemoglobin ABG Methemoglobin Dre Test A-a O2 Difference Total Hemoglobin Lactate Blood Gas Modality FiO2 % Sodium Potassium Chloride Carbon Dioxide Anion Gap BUN Creatinine Estimated GFR/1.73 m2 BUN/Creatinine Ratio Glucose POC Glucose Calculated Osmolality Calcium Total Bilirubin AST ALT Alkaline Phosphatase Creatine Kinase Troponin T < 0.010 Total Protein Albumin Globulin Albumin/Globulin Ratio Plasma Lactate Urine Source Urine Color Urine Clarity Urine pH Ur Specific [place] Urine Protein Urine Ketones Urine Blood Urine Nitrite Urine Bilirubin Urine Urobilinogen Urine Microscopic RBC Urine WBC Urine Microscopic WBC Ur Epithelial Cells Urine Crystals Small Round Cells Urine Bacteria Urine Casts Urine Yeast Urine Glucose Orders Category Date Time Status Cardiac Monitoring DIRECTED Care 04/01/18 18:35 Active Finger Stick Blood Sugar (ED) DIRECTED Care 04/01/18 18:35 Active Oxygen Therapy- ED Nursing DIRECTED Care 04/01/18 18:35 Active Repeat Vital Signs .Blood Pressure Care 04/01/18 19:14 Active Saline Loc NOW Care 04/01/18 18:35 Active CHEST-1 VIEW [RAD] Stat Exams 04/01/18 18:[address] HEAD W/O CONTRAST [CT] Stat Exams 04/01/18 18:35 Completed ABG [RESP] Routine Lab 04/01/18 18:38 Completed CBC WITH ELECTRONIC DIFF [HEME] Stat Lab 04/01/18 19:40 Completed CK PROFILE [SP CHEM] Stat Lab 04/01/18 19:40 Completed COMPREHENSIVE METABOLIC PANEL [CHEM] Stat Lab 04/01/18 19:40 Completed LACTATE, PLASMA [CHEM] Stat Lab 04/01/18 19:40 Completed PROTIME WITH INR [COAG] Stat Lab 04/01/18 19:40 Completed PTT [COAG] Stat Lab 04/01/18 19:40 Completed TROPONIN T Stat Lab 04/01/18 19:40 Completed URINE CULTURE [RM] Routine Lab 04/01/18 19:46 Received ua [URINALYSIS PL W/POSS RFLX CULT] [URINALYSIS] Stat Lab 04/01/18 18:40 Completed Hydralazine [Apresoline] Med 04/01/18 20:50 Discontinued 10 mg IV NOW ONE Hydralazine [Apresoline] Med 04/01/18 21:40 Discontinued 10 mg IV NOW ONE Potassium Chloride E.r. [Klor-Con] Med 04/01/18 20:33 Discontinued 40 meq PO NOW ONE Altered Mental Status Stat Oth 04/01/18 18:35 Ordered EKG [EKG] Stat Ther 04/01/18 18:35 Ordered Transfer/Admit Order [TRANSFER] Routine Transfer 04/01/18 20:50 Ordered Result Diagrams: 04/01/18 19:40 04/01/18 19:40 - REASSESSMENT Reassessment #1 Time Reassessed: 20:40 (Facial droop has resolved. Pt is more altered, unable to answer name, date, or answer the name of her daughter at bedside. Reviewed pt with Dr Damian, who agrees with tx plan and admission) Reassessment #2 Time Reassessed: 21:44 (BP 225/95, Will give additonal dose of hydralazine) Reassessment #3 Time Reassessed: 22:36 (BP 207/75. Confirmed with Dr Damian to give labetalol 10mg IV. ) - XRAY 1 XRAY Study: Chest Impression: See EMR Report ( Heart size appears borderline enlarged. Lungs appear essentially clear. There are possible tiny bilateral pleural effusions. There is no pneumothorax identified. IMPRESSION: Borderline cardiomegaly. Possible tiny bilateral pleural effusions. No other acute changes. Electronically signed by Emmett Guajardo 04/01/2018 8:25 PM) - CT/MRI 1 CT Study: Head Impression: See EMR Report (There are mild atrophic changes. There are mild chronic appearing microvascular ischemic changes. There is no indication of recent infarct, although acute infarcts may not be immediately visible. There is no evidence of intracranial hemorrhage, mass effect, or midline shift. There is no evidence of skull fracture. There are possible small bilateral mastoid effusions noted. IMPRESSION: No visible acute intracranial abnormality. No hemorrhage or mass effect. There are possible small mastoid effusions noted. This exam was performed using automated exposure control, adjustment of mA or kV according to patient size, and/or use of iterative reconstruction technique. Electronically signed by Emmett Guajardo 04/01/2018 8:00 PM) - CONSULTS/PCP/HOSPITALIST Notification #1 *Consult/PCP/Hospitalist*: Dr Haskins, hospitalist Time Discussed: 20:55 (possible admission) Consult Disposition: Admit Departure - Departure Date of Disposition Decision: 04/01/18 Time of Disposition Decision: 20:55 DIAGNOSIS: Hypokalemia, Hypocalcemia Altered mental status Qualifiers: Altered mental status type: unspecified Qualified Code(s): R41.82 - Altered mental status, unspecified Hypertension Qualifiers: Hypertension type: unspecified Qualified Code(s): I10 - Essential (primary) hypertension Disposition: ADMITTED INPATIENT 09 Certified Medical Emergency: Emergent Condition: Fair - Critical Care Note This patient required my direct & personal management of CC.: No Attestation - Physician/ VENKATESH Attestation Patient care was provided by Advanced Practice Provider:: Yes Advanced Practice Provider:: James Hinton Advanced Practice Provider documentation review:: The Mid-level provider documentation, treatment plan and medical decision making was reviewed by the physician who agrees with all treatment and medical decision making by the [facility]. The physician spent face to face time with patient:: No Advanced Practice Provider documentation review:: Supervising physician onsite and consulted in the evaluation and care of this patient. The physician did not have a face to face encounter with the patient. - NIH Stroke Scale NIH Type: Initial Evaluation Level of Consciousness: 0-Alert LOC Questions (ask month and age): 2-Both Incorrect LOC Commands (ask to open & close eyes;make a fist, let go): 0-Obeys Both Correctly Best Gaze (horizontal eye movement): 0-Normal Visual (use finger movement, counting or visual threat): 0-No Visual Loss Facial Palsy (show teeth or raise eyebrows & close eyes tght: 0-Symmetrical Movement Motor Function-left arm: 0-Normal Motor Function-right arm: 0-Normal Motor Function-left le-Normal Motor Function-right le-Normal Limb Ataxia(nfhlqt-[id number]-[id number], or heel to gagnon): 0-No Ataxia Sensory(pin prick to face,arms,trunk,legs-compare side/side): 0-No Ataxia Best Language(name item/read sentence.Ex-Down to Earth): 0-No Aphasia Dysarthria(Pt read words or say words Ex.Mama,Tip-Top,Thanks: 1-Mild-Mod Slurring Words Extinction and Inattention: 0-Normal NIH Total Score: 2 This chart was documented by the indicated scribe, (Ping Joseph, Scribe) and accurately reflects the services I performed and decisions made by , James Hinton CRNP, as attested by the provider's signature.
[2018-04-02] MEDS: DETROL LA PO SCH ×2 (00:11→21:44)
[2018-04-02] MEDS: GEODON PO SCH ×2 (00:11→21:43)
[2018-04-02] MEDS: DESYREL PO SCH ×2 (00:12→21:43)
[2018-04-02] MEDS ORDERED: TYLENOL PO PRN (06:12)
[2018-04-02] MEDS ORDERED: ZOFRAN IV PRN (06:12)
[2018-04-02] MEDS: ROCEPHIN 1 GM in NS 50 ML IV SCH (07:08)
--- NOTE | 2018-04-02 09:57 | EKG Report ---
Test Performed on : 04/01/2018 6:48:33 PM Test Reason : AMS Blood Pressure : / mmHG Vent. Rate : 067 BPM Atrial Rate : 067 BPM P-R Int : 188 ms QRS Dur : 090 ms QT Int : 444 ms P-R-T Axes : 081 -19 093 degrees QTc Int : 469 ms Normal sinus rhythm. Left ventricular hypertrophy with repolarization abnormality Abnormal ECG When compared with ECG of 21-APR-2017 08:30, Previous ECG has undetermined rhythm, needs review ST no longer depressed in Lateral leads Unconfirmed Result
[2018-04-02] MEDS: COZAAR PO SCH (12:36)
[2018-04-02 13:10] LABS: AGAP 12; ALBUMIN 3.9 g/dL (3.5-5.0); ALKALINE PHOSPHATASE 80 U/L (32-104); BUN 6 mg/dL (8-22); CALCIUM 8.9 mg/dL (8.8-10.2); CHLORIDE 97 mmol/L (98-107); COSMO 274; CREATININE 0.9 mg/dL (0.5-0.9); ESTIMATED GFR > 60; GLUCOSE 151 mg/dL (70-104); GOT 35 U/L (10-30); GPT 29 U/L (10-36); MAGNESIUM 1.8 mg/dL (1.5-2.7); SODIUM 137 mmol/L (136-145); TCO2 28 mmol/L (25-35); TOTAL PROTEIN 6.4 g/dL (6.3-8.3)
[2018-04-02] MEDS: APRESOLINE PO SCH ×2 (15:47→21:43)
[2018-04-02] MEDS: CARAFATE PO SCH ×2 (15:47→21:43)
[2018-04-02] MEDS: XANAX PO SCH ×2 (15:47→17:32)
[2018-04-02] MEDS ORDERED: KLOR-CON PO ONE (17:27)
--- NOTE | 2018-04-02 20:30 | HISTORY AND PHYSICAL ---
CHIEF COMPLAINT: Altered mental status. HISTORY OF PRESENT ILLNESS: This is a 72-year-old female, who presented to the emergency room with her daughter. The daughter states that when she saw the mother today at 4: 15 that she was confused. She could not tell her where she was. She did know know who the daughter was. She actually did not know her own name. The daughter states that she was last seen normal yesterday. She has had no complaints or any recent illness. The patient did complain of a headache while in the emergency room, although she is unsure of when it began, and she cannot really describe the headache. CT of the head was performed which revealed no visible acute intracranial abnormality. No hemorrhage or mass effect. She was noted to have a potassium of 2.8, as well as blood pressure 153/109 for which she was given supplemental potassium as well as labetalol, IV hydralazine, and she is being admitted for further evaluation and treatment. PAST MEDICAL HISTORY: 1. Peptic ulcer disease. 2. Anxiety and depression. 3. Chronic pain. 4. Questionable thyroid disease. 5. Hypertension. PAST SURGICAL HISTORY: Hysterectomy, right shoulder surgery and lumbar spine surgery. SOCIAL HISTORY: She denies alcohol, tobacco, or illicit drug use. She lives alone. She has a daughter who lives close and is active in her care. REVIEW OF SYSTEMS: Unable to discuss with the patient at present due to her confusion. ALLERGIES: No known drug allergies. HOME MEDICATIONS: A list will be obtained by the nursing staff and restarted as appropriate. PHYSICAL EXAMINATION: GENERAL: This is a 72-year-old female who is sitting up in the bed in no distress. VITAL SIGNS: Blood pressure is 157/51 with a heart rate of 64, respirations are 20, temperature is 98.8 with room air saturations 94-96%. EYES: Pupils are equal, round, react to light. EOMs are intact. Sclerae anicteric. HEENT: Head is normocephalic, atraumatic. Mucous membranes are moist. NECK: Supple with trachea midline. CARDIOVASCULAR: Regular rate and rhythm. S1 and S2 appreciated. Peripheral pulses are palpable x4 extremities. PULMONARY: Breath sounds are clear with no increased work of breathing noted. Chest rises and falls symmetrically with respiration. GASTROINTESTINAL: Abdomen is soft, nontender, nondistended with bowel sounds in all 4 quadrants. NEUROLOGIC: She is alert. She is oriented to herself, her birthday. She knows who her daughter is. She does follow commands. SKIN: Warm and dry. LABS: WBC is 8.1 with hemoglobin 12.9, hematocrit 37.2, platelets of 153. Sodium is 138, potassium 2.8, BUN 7, creatinine 1 with a glucose of 166. Urinalysis is a catheter specimen. She has less than 10 microscopic red blood cells, white blood cells is essentially negative. Urine culture revealed no growth. CT of the head revealed no visible acute intracranial abnormality. No hemorrhage or mass effect. There are possible small mastoid effusions noted. Chest x-ray reveals borderline cardiomegaly, possible tiny bilateral pleural effusions. No other acute changes. EKG reveals sinus rhythm at a rate of 67. ASSESSMENT AND PLAN: 1. Altered mental status. 2. Hypokalemia. 3. Hyperglycemia. 4. Hypertension. 5. Paroxysmal atrial fibrillation. 6. Depression. 7. Headache. 8. Dementia. PLAN: The patient has been admitted to the medical-surgical floor. telemetry. Neuro checks q4h x 24 continue with neuro checks. repeat a CMP and magnesium. identify her home medications and continue these as appropriate. Rocephin 1 g q.24 hours. CBC and CMP in the morning. Trending electrolytes and repleting as appropriate. Further treatments pending hospital course. Dictated by SUKHI Perez for Gold Licea MD This chart was documented by, SUKHI Perez and accurately reflects the services performed, treatment plan and medical decisions as attested by the providers signature Gold Licea MD. cc: SUKHI Perez MD [facility]
[2018-04-02] MEDS: ARICEPT PO SCH (21:43)
--- NOTE | 2018-04-03 01:31 | HISTORY AND PHYSICAL ---
ADDENDUM: Patient seen and examined by myself. Full note dictated and discussed with nurse practitioner. The patient is a 72-year-old female who presented to the hospital with confusion, delirium. Daughter notes that earlier today she was confused and could not tell where she was and did not know the patient's name nor the daughter's name. While in the ER, this appeared to have resolved and she was alert and oriented. Currently, she is confused again. We will admit her to the hospital, place her on antibiotics, treat presumptively for urinary tract infection. She does have dementia which certainly would go along with her acute delirium. We will continue to follow. cc: Gold Licea MD
[2018-04-03] MEDS: ROCEPHIN 1 GM in NS 50 ML IV SCH (05:58)
[2018-04-03 06:14] LABS: HEMATOCRIT 38.9 % (37.0-47.0); HEMOGLOBIN 12.9 g/dL (12.0-16.0); MCHC 33.2 g/dL (33-37); MCV 84.6 FL (81-99); MPV 10.8 FL (7.4-10.4); RBC 4.6 XMIL (4.2-5.4); RDW 13.7 % (11.5-14.5); WBC 6.58 X1000 (4.8-10.8)
[2018-04-03 06:29] LABS: ALBUMIN 3.7 g/dL (3.5-5.0); CALCIUM 9.3 mg/dL (8.8-10.2); POTASSIUM 3.3 mmol/L (3.5-5.1); TOTAL BILIRUBIN 0.5 mg/dL (0.20-1.00); TOTAL PROTEIN 6.4 g/dL (6.3-8.3)
[2018-04-03] MEDS: PRINIVIL PO SCH (08:55)
[2018-04-03] MEDS: CARAFATE PO SCH ×4 (08:56→20:25)
[2018-04-03] MEDS: APRESOLINE PO SCH ×3 (08:56→20:24)
[2018-04-03] MEDS: COZAAR PO SCH (08:56)
[2018-04-03] MEDS: LEXAPRO PO SCH (08:56)
[2018-04-03] MEDS: XANAX PO SCH ×3 (08:56→16:52)
--- NOTE | 2018-04-03 09:41 | Diag Imaging Result Doc PS360 ---
EXAM: MRI BRAIN W/O CONTRAST HISTORY: AMS TECHNIQUE: Multisequence, multiplanar images of the brain were obtained without contrast as per standard protocol. COMPARISON: CT brain 04/01/2018 FINDINGS: Images are mildly degraded by patient motion. There are no extra-axial collections. Diffusion images show no evidence for acute infarction. There is no evidence for hemorrhage. There is diffuse cerebral atrophy with enlargement of the ventricles and cortical sulci. No midline shift or mass effect. There are periventricular and deep white matter T2 hyperintensities likely related to microvascular disease in a patient of this age. There are small mastoid effusions. IMPRESSION: 1.No evidence for acute infarction. 2.Atrophy and microvascular disease. 3.Small mastoid effusions. Electronically signed by Gricelda Green 04/03/2018 9:39 AM
[2018-04-03] MEDS: GEODON PO SCH (20:24)
[2018-04-03] MEDS: ARICEPT PO SCH (20:25)
[2018-04-03] MEDS: DETROL LA PO SCH (20:25)
[2018-04-03] MEDS: DESYREL PO SCH (20:25)
--- NOTE | 2018-04-04 00:31 | PROGRESS NOTE ---
DATE: 04/03/2018 SUBJECTIVE: Patient still has intermittent times where she is confused, disoriented. Currently, she is awake, alert. She knows she is in the hospital. Knows her name and the date. PHYSICAL EXAMINATION: Vital Signs: Temperature 98 degrees, pulse 60, respiratory 18, BP 148/58. General: Patient is in no current respiratory distress. She is appears awake, alert, oriented. HEENT: Normocephalic. Neck: Supple. Cardiovascular: Regular rate. Chest: Clear. Abdomen: Soft, nondistended, nontender. Extremities: Moves all extremities. Neurologic: No focal changes. ASSESSMENT: 1. Acute delirium in the setting of chronic dementia. 2. Chronic anxiety, depression. 3. Hypertension. 4. Paroxysmal atrial fibrillation. 5. Hypokalemia, resolved. 6. Hyperglycemia, stable. 7. Others. PLAN: We will continue patient in the hospital. We will check an MRI. This does not appear to be an acute stroke and we will follow. cc: Gold Licea MD
[2018-04-04] MEDS: ROCEPHIN 1 GM in NS 50 ML IV SCH (06:33)
[2018-04-04] MEDS: CARAFATE PO SCH ×4 (06:33→22:12)
[2018-04-04] MEDS: COZAAR PO SCH (08:42)
[2018-04-04] MEDS: APRESOLINE PO SCH ×3 (08:42→22:10)
[2018-04-04] MEDS: LEXAPRO PO SCH (08:42)
[2018-04-04] MEDS: PRINIVIL PO SCH (08:43)
[2018-04-04] MEDS: XANAX PO SCH ×3 (08:43→17:10)
--- NOTE | 2018-04-04 14:58 | PROGRESS NOTE ---
DATE: 04/04/2018 SUBJECTIVE: Patient notes that she is feeling better this morning. Denies any chest pain. Denies any confusion last night. PHYSICAL EXAMINATION: Temp 98.3, pulse 64, respiratory 20, BP 173/60.General: Patient is very pleasant to talk with. She appears alert, oriented. Daughter is not currently in the room. HEENT: Normocephalic. Neck: Supple. CARDIOVASCULAR: Regular rate. Chest: Clear, no crackles, no wheezing. Abdomen: Soft, nondistended. Extremities: Moves all extremities. ASSESSMENT: 1. Acute delirium, appears resolved. 2. Hypokalemia, resolved. 3. Hyperglycemia, resolved. 4. Hypertension. 5. Paroxysmal atrial fibrillation. 6. Chronic dementia. PLAN: We will continue patient in the hospital. Unfortunately, she lives at home alone. Certainly does not need to discharge from the hospital back to her residence unattended to. We will attempt to talk to daughter and see if arrangements can be made discharge with her. Otherwise we will need to discharge to rehab. cc: Gold Licea MD
[2018-04-04] MEDS: GEODON PO SCH (22:09)
[2018-04-04] MEDS: DETROL LA PO SCH (22:10)
[2018-04-04] MEDS: ARICEPT PO SCH (22:10)
[2018-04-04] MEDS: DESYREL PO SCH (22:10)
--- NOTE | 2018-04-05 08:24 | PROGRESS NOTE ---
DATE: 04/05/2018 SUBJECTIVE: Patient this morning is awake and alert. She is in no distress. She states she is feeling better. Denies any chest pain or palpitations. PHYSICAL EXAMINATION: Vital Signs: Temperature 98.8, pulse 76, respiratory rate 20, BP 186/67. General: She is in no current respiratory distress. She is lying in the bed. She has not really been out of bed since admission. HEENT: Normocephalic. Neck: Supple. Cardiovascular: Regular rate. No murmurs. Chest: Clear and nonlabored. Extremities: Moves all extremities. Abdomen: Soft and nondistended. Neurologic: No focal changes. Patient is awake, alert, and oriented this morning. ASSESSMENT: 1. Hypertension. Blood pressure is still elevated. We will increase her losartan to 100 mg daily and we will follow. 2. Dementia. Discussed with the daughter yesterday that, although patient has no previous diagnosis of dementia, all of her memory issues certainly should be considered that she has dementia. 3. Hypokalemia. 4. Hyperglycemia. 5. Paroxysmal atrial fibrillation. 6. Others. PLAN: We will continue the patient in the hospital today. Follow her blood pressures on increased losartan. Discussed with the daughter yesterday that she needs to start considering long-term plans. Currently, patient lives at home alone. It would be likely a danger to herself to go back home alone currently. cc: Gold Licea MD
[2018-04-05] MEDS: APRESOLINE PO SCH ×3 (09:19→20:31)
[2018-04-05] MEDS: COZAAR PO SCH (09:19)
[2018-04-05] MEDS: XANAX PO SCH ×3 (09:20→18:00)
[2018-04-05] MEDS: LEXAPRO PO SCH (09:20)
[2018-04-05] MEDS: CARAFATE PO SCH ×4 (09:20→20:30)
[2018-04-05] MEDS: DESYREL PO SCH (20:30)
[2018-04-05] MEDS: DETROL LA PO SCH (20:30)
[2018-04-05] MEDS: ARICEPT PO SCH (20:31)
[2018-04-05] MEDS: GEODON PO SCH (20:31)
[2018-04-06] MEDS: APRESOLINE PO SCH ×3 (08:41→22:45)
[2018-04-06] MEDS: XANAX PO SCH ×3 (08:42→20:40)
[2018-04-06] MEDS: LEXAPRO PO SCH (08:42)
[2018-04-06] MEDS: COZAAR PO SCH (08:42)
[2018-04-06] MEDS: CARAFATE PO SCH ×4 (08:42→20:36)
[2018-04-06] MEDS: NORVASC PO SCH (19:23)
[2018-04-06] MEDS: GEODON PO SCH (20:35)
[2018-04-06] MEDS: DESYREL PO SCH (20:35)
[2018-04-06] MEDS: DETROL LA PO SCH (20:35)
[2018-04-06] MEDS: ARICEPT PO SCH (20:36)
--- NOTE | 2018-04-06 21:13 | PROGRESS NOTE ---
DATE: 04/06/2018 SUBJECTIVE: Patient has no major complaints. OBJECTIVE: Blood pressure is 189/75, heart rate of 69, respiratory rate of 16, temperature 98.2 degrees, 98% on room air.Cardiovascular: Regular rate and rhythm. Pulmonary: Bilateral breath sounds, clear to auscultation. GI: Soft, nontender, nondistended. Bowel sounds are positive. LABORATORY DATA: Six. Hemoglobin and hematocrit 12, 38, platelets 158,000, potassium 3.3, creatinine of 1, AST of 41. PROBLEM LIST: 1. Hypertension still somewhat elevated. She is on losartan, hydralazine, tolterodine, add a little bit of Norvasc and will see how she does. 2. Likely some vascular dementia. We will continue to follow. She is on Geodon seems to be doing okay from that standpoint. Family is a little reluctant to agree to that. I have not spoken to them today. They seem to be not quite sure about long-term plans. 3. Physical therapy described that patient did not need any further treatments. She walked 200 feet so home health would be sufficient. DISPOSITION: Anticipate discharge soon hopefully home, will continue to monitor. cc: Efrain Roth MD
[2018-04-07] MEDS: LEXAPRO PO SCH (09:29)
[2018-04-07] MEDS: CARAFATE PO SCH ×3 (09:29→15:49)
[2018-04-07] MEDS: APRESOLINE PO SCH ×2 (09:29→15:49)
[2018-04-07] MEDS: XANAX PO SCH ×3 (09:29→17:03)
[2018-04-07] MEDS: NORVASC PO SCH (09:29)
[2018-04-07] MEDS: COZAAR PO SCH (09:29)
[2018-04-07] MEDS ORDERED: KLOR-CON PO ONE (15:20)
[2018-04-07] MEDS ORDERED: NORVASC PO ONE (15:32)
[2018-04-07 17:06] VITALS: BP 174/60
--- NOTE | 2018-04-08 08:57 | DISCHARGE SUMMARY ---
ADMISSION DATE: 04/01/2018 DISCHARGE DATE: 04/07/2018 DISCHARGE DIAGNOSES: 1. Hypertension. 2. Dementia. 3. Debilitation. HOSPITAL COURSE: Briefly, this is a 72-year-old female with anxiety, depression, thyroid, who presents with hypertension and altered mentation. She was monitored. The patient was observed. Her brain MRI showed no stroke. Overall, she improved. She did have a relatively high blood pressure. She had a little bit of a temperature to begin with, but in any case, her blood pressure did end up stabilizing. We had to adjust her medicines a bit. Plan will be to discharge with home health. She did fine with physical therapy. DISCHARGE MEDICATIONS: Tolterodine 4 at bedtime, Geodon 40 at bedtime, Xanax 1 t.i.d., Aricept 5 at bedtime, which we may increase to 10 although they just started that, Lexapro 5, hydralazine 50 t.i.d., meloxicam 15 daily, sucralfate 1 g, trazodone 100 at bedtime, losartan was increased to 100, and she was started on amlodipine 10 daily. DISCHARGE CONDITION: Stable. FOLLOWUP: Follow up with Dr. Jerome Daily in 1 to 2 weeks. Resume home health at discharge. Thirty minute discharge. cc: Efrain Roth MD
--- NOTE | 2018-04-08 16:17 | ED EKG INTERP ---
This chart was entered by Ping Joseph Scribe, acting as scribe for Barak Charles MD. EKG Interpretation - EKG Time of EKG reading by physician:: 18:52 EKG Read and Signed by:: Barak Charles EKG Interpretation (*Must complete 3 of following elements*): Abnormal Rate: 67 Rhythm: nsr QRS: LVH (with repolarization) Attestation - Physician/ VENKATESH Attestation Patient care was provided by Advanced Practice Provider:: Yes Advanced Practice Provider documentation review:: The Mid-level provider documentation, treatment plan and medical decision making was reviewed by the physician who agrees with all treatment and medical decision making by the MLP. The physician spent face to face time with patient:: No Advanced Practice Provider documentation review:: Supervising physician onsite and consulted in the evaluation and care of this patient. The physician did not have a face to face encounter with the patient. This chart was documented by the indicated scribe, (Ping Joseph Scribe) and accurately reflects the services I performed and decisions made by me, aBrak Charles MD, as attested by the provider's signature.
== END 2018-04-07 17:50 | disposition home health service (06) ==
LOC: P.ED 18:26 → P.MEDSURG 22:32 → SUATTDRO 22:32 → INTOOBSV 22:32
PROVIDERS: ATTEND Internal Medicine
CPT/HCPCS: 70450; 70551; 71010; 71045; 80053; 81001; 82550; 82805; 82948; 83605; 83735; 84484; 85025; 85027; 85610; 85730; 87088; 93005; 94761; 96374; 96376; 97163; 99285; A9270; J0360; J0696; XXXXX